=== PATIENT | female | born 1965 | race Hispanic/Latino ===

== ENCOUNTER 2019-01-11 09:04 | Emergency (ER) | payer OTHER ==
[2019-01-11 09:17] VITALS: BP 138/84; PULSE 63; RESP 17; TEMP 98.4; O2SAT 100
--- NOTE | 2019-01-11 11:12 | C.PDOC ---
History Of Present Illness 53 y/o female presents to the ER complaining of pain which has been present for the past 2 days. Patient states that she picked up a heavy object 3 days ago and she began having pain the next morning. Patient reports that she took Robaxin. Denies having dysuria, hematuria, and bowel/bladder incontinence. Time Seen by Provider: 01/11/19 09:20 Chief Complaint (Nursing): Back Pain History Per: Patient History/Exam Limitations: no limitations Onset/Duration Of Symptoms: Days Current Symptoms Are (Timing): Still Present Severity: Moderate Past Medical History Reviewed: Historical Data, Nursing Documentation, Vital Signs Vital Signs: Last Vital Signs Temp 98.4 F 01/11/19 09:10 Pulse 63 01/11/19 09:10 Resp 17 01/11/19 09:10 BP 138/84 01/11/19 09:10 Pulse Ox 100 01/11/19 09:10 - Medical History PMH: No Chronic Diseases Other Surgeries: Hx of surgeries Family History: States: No Known Family Hx - Social History Hx Alcohol Use: No Hx Substance Use: No - Immunization History Hx Tetanus Toxoid Vaccination: No Hx Influenza Vaccination: No Hx Pneumococcal Vaccination: No Review Of Systems Except As Marked, All Systems Reviewed And Found Negative. Genitourinary: Negative for: Dysuria, Incontinence, Hematuria Musculoskeletal: Positive for: Back Pain Physical Exam - Physical Exam Appears: Non-toxic, No Acute Distress Skin: Normal Color, Warm, Dry Head: Atraumatic, Normacephalic Eye(s): bilateral: Normal Inspection Nose: Normal Oral Mucosa: Moist Neck: Supple Chest: Symmetrical Cardiovascular: Rhythm Regular Respiratory: Normal Breath Sounds, No Rales, No Rhonchi, No Wheezing Back: Other (diffuse right lower back tenderness) Neurological/Psych: Oriented x3, Normal Speech ED Course And Treatment O2 Sat by Pulse Oximetry: 100 (RA) Pulse Ox Interpretation: Normal Disposition - Disposition Referrals: [facility] Edilberto Vasquez, [Non-Staff] - Disposition: HOME/ ROUTINE Disposition Time: 09:30 Condition: GOOD Additional Instructions: FARIBA DUMONT, thank you for letting us take care of you today. The emergency medical care you received today was directed at your acute symptoms. If you were prescribed any medication, please fill it and take as directed. It may take several days for your symptoms to resolve. Return to the Emergency Department if your symptoms worsen, do not improve, or if you have any other problems. Please contact your doctor or call one of the physicians/clinics you have been referred to that are listed on the Patient Visit Information form that is included in your discharge packet. Bring any paperwork you were given at discharge with you along with any medications you are taking to your follow up visit. Our treatment cannot replace ongoing medical care by a primary care provider outside of the emergency department. Thank you for allowing the [facility] team to be part of your care today. Follow up with your primary care doctor this week for re-evaluation and further management. FARIBA DUMONT, emili por dejarnos cuidar de usted hemant. La atencin mdica de emergencia que recibi hoy se dirigi a santi sntomas agudos. Si le recetaron algn medicamento, llnelo y tmelo segn las indicaciones. Los sntomas pueden tardar varios carr en resolverse. Regrese al Departamento de Emergencias si santi sntomas empeoran, no mejoran o si tiene otros problemas. Comunquese con alexander mdico o llame a zana de los mdicos / clnicas a los que prieto sido referido que figuran en el formulario de Informacin de visita al paciente que se incluye en alexander paquete de danae. Lleve todos los documentos que recibi al momento del danae junto con los medicamentos que est tomando para alexander visita de seguimiento. Nuestro tratamiento no puede reemplazar la atencin mdica continua por parte de un proveedor de atencin primaria fuera del departamento de emergencias. Emili por permitir que el equipo de [facility] sea parte de alexander atencin hoy. Sandra un seguimiento con alexander mdico de atencin primaria esta semana para ghazal reevaluacin y manejo adicional. Prescriptions: Cyclobenzaprine [Cyclobenzaprine HCl] 10 mg PO Q8 PRN #20 tab PRN Reason: Muscle Spasm Ibuprofen [Motrin] 600 mg PO Q6 PRN #20 tab PRN Reason: Pain, Moderate (4-7) Instructions: Low Back Pain (DC) Forms: [employer] [facility] (Lao) Print Language: PORTUGUESE - Clinical Impression Clinical Impression: Low back pain - Scribe Statement The provider has reviewed the documentation as recorded by the Jess Adhikari Provider Attestation: All medical record entries made by the Lianaibe were at my direction and persona lly dictated by me. I have reviewed the chart and agree that the record accurately reflects my personal performance of the history, physical exam, medical decision making, and the department course for this patient. I have also personally directed, reviewed, and agree with the discharge instructions and disposition.
== END 2019-01-11 09:39 | disposition home or self-care (01) ==
LOC: C.ER 09:04
DX: M54.5 Low back pain (principal)